=== PATIENT | female | born 1975 | race Caucasian/White ===

== ENCOUNTER 2017-01-08 11:47 | Emergency (ER) | payer BC ==
--- NOTE | ~2017-01-08 | ER ---
PATIENT'S NAME: RIZWAN HENRY [facility] AGE: 41 Y [address] ROOM: [place] [address] LOCATION: ED ADMIT DATE: 01/08/2017 ER/Outpatient Report DISCHARGE DATE: 01/08/2017 FAMILY PHYSICIAN: Lenin Harris MD ATTENDING PHYSICIAN: Josemanuel Vilchis Time of Arrival: 1151 hours. Time of Exam: 12 noon. CHIEF COMPLAINT: Abdominal pain. HISTORY OF PRESENT ILLNESS: The patient states since last night she has had some generalized right mid upper quadrant abdominal pain. States she has been nauseated, but has not vomited. Has not had fever or chills. Denies any change in her urinary frequency. Has not had pain with urination. Reports she had a normal bowel movement this morning. Has not noticed any blood in the stool. She states this morning she began having mid back pain also, that radiated down her right leg. She is not sure if it is associated with her abdominal pain or not, but she is just not able to get very comfortable because of the pain going down that right leg. ALLERGIES: ARE ON HER CHART AND REVIEWED BY ME. CURRENT MEDICATIONS: None. PAST MEDICAL HISTORY: She does have atrophic left kidney, GERD, degenerative disk disease, and anxiety. PAST SURGERIES: Include anterior cervical disk fusion, C3-C4; cholecystectomy; and bladder surgery in 2004. SOCIAL HISTORY: She lives at home with her . Does smoke a pack per day. Denies use of drugs or alcohol. Her primary provider is Dr. Harris. She did go to his office 1st today and he sent her here for further workup. PHYSICAL EXAMINATION: PATIENT'S NAME: RIZWAN HENRY [facility] AGE: 41 Y [address] ROOM: [place] [address] LOCATION: ED ADMIT DATE: 01/08/2017 ER/Outpatient Report DISCHARGE DATE: 01/08/2017 FAMILY PHYSICIAN: Lenin Harris MD ATTENDING PHYSICIAN: Josemanuel Vilchis VITAL SIGNS: Weight is 121 kg. Blood pressure is 123/93, pulse of 114, respirations 24, temperature of 97.2 tympanic, and O2 saturation is 96% on room air. GENERAL: She is awake, alert, and oriented x4. SKIN: [place], warm, and dry. LUNGS: Respirations are even and nonlabored. Lung sounds are clear throughout, decreased in the bases. HEART: Regular rate and rhythm. ABDOMEN: Soft, nondistended. Bowel sounds are present. She is very tender at the umbilical area and right above to the right of it. No right flank pain, but tenderness along the mid thoracic spinal area. EXTREMITIES: She moves all extremities strongly and equally. She frequently is stretching out her right leg to try and decrease the pain. No peripheral edema is noted. She has strong peripheral pulses. EMERGENCY ROOM COURSE: Saline lock was initiated. Fluids of normal saline were started at a wide- open rate. She was given Zofran 4 mg IV, fentanyl 50 mcg IV, and Valium 1 mg IV. LABORATORY DATA: Lab work was drawn. CBC shows a white count of 14.4, hemoglobin was 15.9 with hematocrit of 46.4. Chem panel is within normal limits. Her GFR is 54, BUN 13 with creatinine 1.1. Amylase is 47, lipase is 96. Clean-catch UA was obtained, it is negative. Urine is negative. CT scan with contrast was completed. Radiologist reports that she does have a small amount of free fluid in the pelvis, possibly from a ruptured cyst. He does not see any mass of the adnexa, no diverticulitis or colitis, no changes in the appendix, and no free air. She does have atrophic left kidney, but it is stable. She does have some degenerative changes of L5-S1. Fentanyl was repeated as was the Valium. The patient was able to lay on the cart and get some relief. The patient was reviewed with Dr. Vilchis. IMPRESSION: 1. Free fluid of the pelvis, possible ruptured cyst. 2. Back pain that extends into the right leg. PLAN: The patient is to be allowed to go home. Rest. Ice or heat to the back area. She is to follow up with either Dr. Harris or an [employer] provider in the next 1-2 days. Prescription was written for [place] for the pain. She verbalized understanding. PATIENT'S NAME: RIZWAN HENRY [facility] AGE: 41 Y [address] ROOM: [place] [address] LOCATION: ED ADMIT DATE: 01/08/2017 ER/Outpatient Report DISCHARGE DATE: 01/08/2017 FAMILY PHYSICIAN: Lenin Harris MD ATTENDING PHYSICIAN: Josemanuel Vilchis MARILEE AVERY APRN FOR DO SANDRA HAND/modl /[id number] d: 01/08/17 1940 t: 01/15/17 0641, OUTPATIENT REPORT
[~2017-01-08 11:47] MED LIST: BACTRIM DS1 TAB PO; DELTASONE10 MG PO; FLEXERIL10 MG PO; LEVAQUIN500 MG PO; PERCOCET 5-3251 EACH PO; TYLENOL325 MG PO
[2017-01-08 12:34] LABS: BILIRUBIN URINE NEGATIVE (NEGATIVE); BLOOD URINE NEGATIVE /UL (NEGATIVE); COLOR URINE YELLOW (YELLOW); GLUCOSE URINE NEGATIVE (NEGATIVE); KETONE URINE NEGATIVE (NEGATIVE); LEUKOCYTES URINE NEGATIVE /UL (NEGATIVE); NITRITE URINE NEGATIVE (NEGATIVE); PROTEIN URINE NEGATIVE (NEGATIVE); TURBIDITY URINE CLEAR (CLEAR); UROBILINOGEN URINE NORMAL (NORMAL)
[2017-01-08 12:35] LABS: BASOPHIL # 0.1 K/uL (0.0-0.2); BASOPHIL % 0.7 %; EOSINOPHIL # 0.2 K/uL (0.0-0.5); EOSINOPHIL % 1.3 %; HEMATOCRIT 46.4 % (33.0-46.0); HEMOGLOBIN 15.9 g/dL (10.0-15.0); IMMATURE GRANULOCYTE # 0.1 K/uL (0.0-0.3); IMMATURE GRANULOCYTE % 0.4 %; LYMPHOCYTE # 3.1 K/uL (0.8-4.0); LYMPHOCYTE % 21.4 %; MCH 29.2 pg (27.0-34.0); MCHC 34.3 gm/dL (32.0-36.5); MCV 85.3 fl (83.0-98.0); MONOCYTE # 0.6 K/uL (0.0-1.0); MONOCYTE % 4.2 %; MPV 10.5 fl (9.4-12.4); NEUTROPHIL # (ANC) 10.4 K/uL (1.8-7.8); NRBC % 0 /100WBC (0-0.00); PLATELET COUNT 317 K/uL (150-450); RBC 5.44 M/uL (3.50-5.50); RDW-CV 12.5 % (11.9-14.6); WBC 14.4 K/uL (4.0-11.0)
[2017-01-08 12:59] LABS: ALBUMIN 3.8 gm/dL (3.5-5.0); CALCIUM 8.9 mg/dL (8.5-10.5); CREATININE 1.1 mg/dL (0.5-1.1); TOTAL BILIRUBIN 0.4 mg/dL (0.0-1.5); TOTAL PROTEIN 7.4 g/dL (6.0-8.4)
[2017-01-08 13:02] LABS: ANION GAP 15.9 (10.0-19.0); POTASSIUM 3.9 mMol/L (3.7-5.1)
[2017-02-24] MEDS ORDERED: PROTONIX40 MG PO (10:11)
[2017-02-24] MEDS ORDERED: BUSPAR5 MG PO (10:11)
[2017-02-24] MEDS ORDERED: DRISDOL 5050000 UNIT PO (10:12)
== END 2017-01-08 14:20 | disposition disaster alternative care site (69) ==
LOC: GMED 11:47
PROVIDERS: Emergency Medicine
DX: N94.89 Other specified conditions associated with female genital organs and menstrual cycle (principal); M54.6 Pain in thoracic spine; F41.9 Anxiety disorder, unspecified; K21.9 Gastro-esophageal reflux disease without esophagitis; F17.210 Nicotine dependence, cigarettes, uncomplicated; Z88.5 Allergy status to narcotic agent; Z88.6 Allergy status to analgesic agent; Z98.1 Arthrodesis status; Z90.49 Acquired absence of other specified parts of digestive tract; Z98.890 Other specified postprocedural states
CPT/HCPCS: J2405; J3010; J3360; J7030; Q9967

== ENCOUNTER 2017-01-28 14:13 | Emergency (ER) | payer BC ==
--- NOTE | ~2017-01-28 | ER ---
PATIENT'S NAME: RIZWAN HENRY [facility] AGE: 41 Y [address] ROOM: [place] [address] LOCATION: [facility] ADMIT DATE: 01/28/2017 ER/Outpatient Report DISCHARGE DATE: 01/28/2017 FAMILY PHYSICIAN: Lenin Harris MD ATTENDING PHYSICIAN: Josemanuel Vilchis Time of Arrival: 1413 hours. Time of Evaluation: 1415 hours. CHIEF COMPLAINT: A burning sensation in mouth. HISTORY OF PRESENT ILLNESS: The patient is a 41-year-old female who presents to the emergency department today with a chief complaint of burning sensation in her mouth. She reports she was having spasms in her throat. This all occurred prior to arrival after eating some noodles. She feels like she is having some shortness of breath and a dry nonproductive cough. Denies any chest pain. No nausea or vomiting. No abdominal pain. No fevers or chills. No diarrhea. The patient has been on Macrobid secondary to urinary tract infection; however, the urine culture is reported as no growth. Denies any pain. PAST MEDICAL HISTORY: Degenerative disk disease, ectopic left kidney, and gastroesophageal reflux disease. PAST SURGICAL HISTORY: Anterior cervical disk fusion of C3-C4, gallbladder, and bladder surgery. SOCIAL HISTORY: The patient smokes a pack per day. Denies any alcohol or illicit drug use. ALLERGIES: TO AUGMENTIN, KEFLEX, LEVAQUIN, AND CIPROFLOXACIN. PRIMARY CARE DOCTOR: Lenin Harris MD. REVIEW OF SYSTEMS: All systems are reviewed by myself and are negative with the exception of those discussed in HPI and past medical history. PHYSICAL EXAMINATION: VITAL SIGNS: Weight 122 kg, blood pressure 137/82, pulse 120, respiratory rate 24, temperature 97.4, and oxygen saturation 97% on room air. PATIENT'S NAME: RIZWAN HENRY [facility] AGE: 41 Y [address] ROOM: [place] [address] LOCATION: [facility] ADMIT DATE: 01/28/2017 ER/Outpatient Report DISCHARGE DATE: 01/28/2017 FAMILY PHYSICIAN: Lenin Harris MD ATTENDING PHYSICIAN: Josemanuel Vilchis GENERAL: The patient is a 41-year-old female, obese, who appears in no acute respiratory distress. HEENT: Normocephalic, atraumatic. Pupils are equal, round, and reactive to light and accommodation. Extraocular motions are intact. Nares are patent bilaterally. TMs are clear. Oropharynx is clear. NECK: Supple. There is no nuchal rigidity. CARDIOVASCULAR: Tachycardic. No murmurs, rubs, or gallops. LUNGS: Clear to auscultation bilaterally. No wheezes, rales, or rhonchi. ABDOMEN: Soft, nontender, and nondistended. No rebound, rigidity, or guarding. MUSCULOSKELETAL: The patient moves all 4 extremities. SKIN: Warm and dry. There are no rashes or lesions noted. LABS AND X-RAYS: Lactate is 1.9. Procalcitonin is less than 0.05. CBC: White blood cell count 12.7, hemoglobin 15.6, hematocrit 46.3. Coags are normal. CMP is unremarkable. LFTs normal. Cardiac enzymes are normal. IMPRESSION: 1. Allergic reaction and anaphylaxis. 2. Initial visit. EMERGENCY DEPARTMENT COURSE: The patient was brought back to the examination room. Seen and evaluated by myself. An IV is established. Laboratory analysis and imaging are obtained as described above. The patient is given 0.3 mg of epinephrine IM. She is given 50 mg of Benadryl IV as well as 125 mg of Solu-Medrol IV, 40 mg of Pepcid IV, she is given a liter of normal saline. She is given 3 albuterol breathing treatments. The patient's symptoms did significantly improve. I have discussed results of the laboratory analysis with the patient and her . She is feeling back to her normal self at this time. I have written prescription for EpiPen for home. I have written a prescription for prednisone for home as well. I have discussed she is not to take the Macrobid and that she is not to eat Ramen Noodles again. I have asked she follows up with her primary care doctor in 2 days for re-evaluation. The patient is agreeable. I have discussed return to care instructions including worsening symptoms or any other concerns, to return to the emergency department as soon as possible. The patient is agreeable without further questions. DISPOSITION: The patient discharged home in good condition. PATIENT'S NAME: RIZWAN HENRY [facility] AGE: 41 Y [address] ROOM: [place] [address] LOCATION: [facility] ADMIT DATE: 01/28/2017 ER/Outpatient Report DISCHARGE DATE: 01/28/2017 FAMILY PHYSICIAN: Lenin Harris MD ATTENDING PHYSICIAN: Josemanuel Vilchis DO KJR/daniel /[id number] d: 01/29/17 0024 t: 02/06/17 1936, OUTPATIENT REPORT
[2017-01-28 14:41] LABS: BASOPHIL # 0.1 K/uL (0.0-0.2); BASOPHIL % 0.5 %; EOSINOPHIL # 0.2 K/uL (0.0-0.5); EOSINOPHIL % 1.3 %; HEMATOCRIT 46.3 % (33.0-46.0); HEMOGLOBIN 15.6 g/dL (10.0-15.0); IMMATURE GRANULOCYTE # 0.1 K/uL (0.0-0.3); IMMATURE GRANULOCYTE % 0.5 %; LYMPHOCYTE # 2.6 K/uL (0.8-4.0); LYMPHOCYTE % 20.7 %; MCH 29.1 pg (27.0-34.0); MCHC 33.7 gm/dL (32.0-36.5); MCV 86.4 fl (83.0-98.0); MONOCYTE # 0.5 K/uL (0.0-1.0); MPV 10.8 fl (9.4-12.4); NEUTROPHIL # (ANC) 9.3 K/uL (1.8-7.8); NRBC % 0 /100WBC (0-0.00); PLATELET COUNT 310 K/uL (150-450); RBC 5.36 M/uL (3.50-5.50); RDW-CV 12.7 % (11.9-14.6); WBC 12.7 K/uL (4.0-11.0)
[2017-01-28 14:50] LABS: PTT 26 SECONDS (25-32)
[2017-01-28 15:01] LABS: ALBUMIN 3.8 gm/dL (3.5-5.0); ALK PHOS 114 IU/L (33-138); ALT 23 IU/L (12-78); ANION GAP 14.7 (10.0-19.0); AST 18 IU/L (10-40); BLOOD UREA NITROGEN 14 mg/dL (6-24); CALCIUM 8.3 mg/dL (8.5-10.5); CHLORIDE 107 mMol/L (96-110); CO2 22 mMol/L (22-32); CPK 84 IU/L (21-215); CREATININE 1.1 mg/dL (0.5-1.1); ESTIMATED GFR (MDRD EQUATION) 54; POTASSIUM 3.7 mMol/L (3.7-5.1); SODIUM 140 mMol/L (135-145); TOTAL BILIRUBIN 0.4 mg/dL (0.0-1.5); TOTAL PROTEIN 7.4 g/dL (6.0-8.4)
[2017-02-24] MEDS ORDERED: BUSPAR5 MG PO (10:11)
[2017-02-24] MEDS ORDERED: PROTONIX40 MG PO (10:11)
[2017-02-24] MEDS ORDERED: DRISDOL 5050000 UNIT PO (10:12)
== END 2017-01-28 16:46 | disposition disaster alternative care site (69) ==
LOC: GMED 14:13
PROVIDERS: Emergency Medicine
DX: T78.2XXA Anaphylactic shock, unspecified, initial encounter (principal); F17.210 Nicotine dependence, cigarettes, uncomplicated; Z98.1 Arthrodesis status; Z88.1 Allergy status to other antibiotic agents
CPT/HCPCS: J0171; J1200; J2930; J7030

== ENCOUNTER → 2017-02-06 | Outpatient (CLI) | payer BC ==
[~2017-02-06] MED LIST changes: +BUSPAR5 MG PO; +DRISDOL 5050000 UNIT PO; +PROTONIX40 MG PO
== END | disposition disaster alternative care site (69) ==
LOC: GBCOE 12:42
DX: Z12.31 Encounter for screening mammogram for malignant neoplasm of breast (principal); E04.2 Nontoxic multinodular goiter
CPT/HCPCS: G0202

== ENCOUNTER 2017-02-12 18:07 | Emergency (ER) | payer BC ==
--- NOTE | ~2017-02-12 | ER ---
PATIENT'S NAME: RIZWAN HENRY [facility] AGE: 41 Y [address] ROOM: [place] [address] LOCATION: [facility] ADMIT DATE: 02/12/2017 ER/Outpatient Report DISCHARGE DATE: 02/12/2017 FAMILY PHYSICIAN: Valerie Cook MD ATTENDING PHYSICIAN: Ravin Wright Admission date and time are documented on the medical record. I saw the patient at 1830 hours. CHIEF COMPLAINT: Right upper quadrant abdominal pain. HISTORY OF PRESENT ILLNESS: This patient is a 41-year-old female who has chronic right upper quadrant abdominal pain. It intensifies from [id number] as it did today after she awoke from sleep this morning. She has had 3 diarrheal stools. She has nausea, but no vomiting. No fever, chills, sweats, coughs, or colds. No lightheadedness, dizziness, syncope, or near syncope. No fall or trauma. No headache, eyes, ears, nose, throat, neck, or spine pain. No chest pain or shortness of breath. No joint or muscle swelling, redness, or pain. No skin eruptions or rash. No history of neuro changes, psych issues, or endocrine problems. HOME MEDICATIONS: See attached medication list. ALLERGIES: PENICILLIN, KEFLEX, LEVAQUIN, AND CIPRO. SOCIAL HISTORY: The patient smokes a pack of cigarettes per day. Occasional intake of alcohol. SIGNIFICANT PAST MEDICAL HISTORY: Ectopic left kidney, gastroesophageal reflux, tobacco abuse, and degenerative disk disease. OPERATIONS: Cervical disk fusion, cholecystectomy, and bladder surgery. REVIEW OF SYSTEMS: All systems reviewed by me are negative with the exception of those discussed in the history of present illness. PHYSICAL EXAMINATION: PATIENT'S NAME: RIZWAN HENRY [facility] AGE: 41 Y [address] ROOM: [place] [address] LOCATION: [facility] ADMIT DATE: 02/12/2017 ER/Outpatient Report DISCHARGE DATE: 02/12/2017 FAMILY PHYSICIAN: Valerie Cook MD ATTENDING PHYSICIAN: Ravin Wright VITAL SIGNS: Temperature 98.4, pulse 111, respirations 18, blood pressure 129/88, and O2 sat on room air is 95%. HEAD: Normocephalic. EYES, EARS, NOSE, THROAT: Clear. NECK: Negative. SPINE: Negative. LUNGS: Clear. HEART: Regular. ABDOMEN: Mildly obese, soft, some tenderness in right upper quadrant. No palpable masses. No organomegaly. Good bowel tones. No CVA tenderness. EXTREMITIES: Intact. NEUROVASCULAR: Intact. SKIN: Clear. No skin eruptions or rash. LABORATORY DATA: Three-way abdominal x-rays show no perforation, obstruction, or acute lung infiltrate. We will review x-ray with the radiologist. Laboratory: Procalcitonin was less than 0.05. Lactate was 1.3. White count was 13,500, 72 segs, 21 lymphs, 5 monos, 1 eo, hemoglobin is 15 with hematocrit 44.2, and platelet count is 269,000. Sed rate is 18, PTT was 25, pro-time is 9.3 with an INR 0.89. Amylase and lipase were normal. CPK was 85. Urbtn-qx-ttlm cardiac enzymes were normal. Acetaminophen and salicylate serum levels were normal. CRP was 1.42. CMS was normal except for an elevated creatinine 1.5, low GFR 38. Medical blood alcohol was normal. CT scan of the abdomen and pelvis was negative as read by Radiology, see dictated transcribed report. IMPRESSION: 1. Right upper quadrant abdominal pain, etiology uncertain. 2. Renal insufficiency. 3. Gastroesophageal reflux with a history of gastritis. 4. Tobacco abuse. PLAN: The patient was given morphine IV in the emergency room for pain and Zofran IV for nausea and vomiting. Dismissed home. Fluids, diet as tolerated. Continue present home medications and care. [place] 7.5/325 as need for pain, #6. Follow up with personal physician in 1 to 2 days. Discussion ensued with the patient concerning my findings and recommendations, she understands. RAVIN WRIGHT MD SDS/modl PATIENT'S NAME: RIZWAN HENRY [facility] AGE: 41 Y [address] ROOM: [place] [address] LOCATION: ED ADMIT DATE: 02/12/2017 ER/Outpatient Report DISCHARGE DATE: 02/12/2017 FAMILY PHYSICIAN: Valerie Cook MD ATTENDING PHYSICIAN: Ravin Wright /[id number] d: 02/13/17 0146 t: 02/13/17 1809, OUTPATIENT REPORT
[~2017-02-12 18:07] MED LIST changes: -BUSPAR5 MG PO; -DRISDOL 5050000 UNIT PO; -PROTONIX40 MG PO
[2017-02-12 18:53] LABS: BILIRUBIN URINE NEGATIVE (NEGATIVE); BLOOD URINE 250 /UL (NEGATIVE); COLOR URINE YELLOW (YELLOW); GLUCOSE URINE NEGATIVE (NEGATIVE); KETONE URINE NEGATIVE (NEGATIVE); LEUKOCYTES URINE 100 /UL (NEGATIVE); NITRITE URINE NEGATIVE (NEGATIVE); PROTEIN URINE 15 mg/dL (NEGATIVE); SPEC GRAVITY URINE 1.015 (1.003-1.035); TURBIDITY URINE 1+ (CLEAR); UROBILINOGEN URINE NORMAL (NORMAL)
[2017-02-12 19:05] LABS: RBC URINE 20-50 #/HPF (NEGATIVE)
[2017-02-12 19:06] LABS: BACTERIA URINE MODERATE (NEGATIVE)
[2017-02-12 19:12] LABS: BASOPHIL # 0.1 K/uL (0.0-0.2); BASOPHIL % 0.4 %; EOSINOPHIL # 0.2 K/uL (0.0-0.5); EOSINOPHIL % 1.3 %; HEMATOCRIT 44.2 % (33.0-46.0); IMMATURE GRANULOCYTE # 0.1 K/uL (0.0-0.3); IMMATURE GRANULOCYTE % 0.4 %; LYMPHOCYTE # 2.8 K/uL (0.8-4.0); LYMPHOCYTE % 20.8 %; MCH 29.2 pg (27.0-34.0); MCHC 33.9 gm/dL (32.0-36.5); MCV 86.2 fl (83.0-98.0); MONOCYTE # 0.7 K/uL (0.0-1.0); MPV 11.1 fl (9.4-12.4); NEUTROPHIL # (ANC) 9.8 K/uL (1.8-7.8); NEUTROPHIL % 72.1 %; NRBC % 0 /100WBC (0-0.00); PLATELET COUNT 269 K/uL (150-450); RBC 5.13 M/uL (3.50-5.50); RDW-CV 12.6 % (11.9-14.6); WBC 13.5 K/uL (4.0-11.0)
[2017-02-12 19:21] LABS: INR - (THERAPEUTIC) 0.89 (0.92-1.07); PROTIME 9.3 SECONDS (9.8-11.4); PTT 25 SECONDS (25-32)
[2017-02-12 19:30] LABS: ALBUMIN 3.7 gm/dL (3.5-5.0); ALK PHOS 105 IU/L (33-138); ALT 30 IU/L (12-78); ANION GAP 11.9 (10.0-19.0); AST 20 IU/L (10-40); BLOOD UREA NITROGEN 17 mg/dL (6-24); CHLORIDE 110 mMol/L (96-110); CO2 22 mMol/L (22-32); CPK 85 IU/L (21-215); CREATININE 1.5 mg/dL (0.5-1.1); POTASSIUM 3.9 mMol/L (3.7-5.1); SODIUM 140 mMol/L (135-145); TOTAL PROTEIN 7.1 g/dL (6.0-8.4)
[2017-02-12 19:34] LABS: ESTIMATED GFR (MDRD EQUATION) 38; TOTAL BILIRUBIN 0.3 mg/dL (0.0-1.5)
[2017-02-24] MEDS ORDERED: BUSPAR5 MG PO (10:11)
[2017-02-24] MEDS ORDERED: PROTONIX40 MG PO (10:11)
[2017-02-24] MEDS ORDERED: DRISDOL 5050000 UNIT PO (10:12)
== END 2017-02-12 21:21 | disposition disaster alternative care site (69) ==
LOC: GMED 18:07
PROVIDERS: Emergency Medicine
DX: R10.11 Right upper quadrant pain (principal); N28.9 Disorder of kidney and ureter, unspecified; K21.9 Gastro-esophageal reflux disease without esophagitis; F17.210 Nicotine dependence, cigarettes, uncomplicated; Z88.0 Allergy status to penicillin; Z88.1 Allergy status to other antibiotic agents; Z98.1 Arthrodesis status; Z90.49 Acquired absence of other specified parts of digestive tract; Z98.890 Other specified postprocedural states
CPT/HCPCS: G0480; J2270; J2405; J7030

== ENCOUNTER → 2017-02-26 | Outpatient (CLI) | payer BC ==
[~2017-02-26] MED LIST changes: +BUSPAR5 MG PO; +DRISDOL 5050000 UNIT PO; +PROTONIX40 MG PO
== END | disposition disaster alternative care site (69) ==
LOC: GPOC 02-24 10:00
PROC: 0GBG3ZX Excision of Left Thyroid Gland Lobe, Percutaneous Approach, Diagnostic (ICD-10-PCS; principal; 2017-02-26)
PROC: 0GBH3ZX Excision of Right Thyroid Gland Lobe, Percutaneous Approach, Diagnostic (ICD-10-PCS; 2017-02-26)
DX: E04.2 Nontoxic multinodular goiter (principal)

== ENCOUNTER 2017-03-03 10:38 | Emergency (ER) | payer BC ==
--- NOTE | ~2017-03-03 | ER ---
PATIENT'S NAME: RIZWAN HENRY [facility] AGE: 41 Y [address] ROOM: [place] [address] LOCATION: ED ADMIT DATE: 03/03/2017 ER/Outpatient Report DISCHARGE DATE: 03/03/2017 FAMILY PHYSICIAN: Valerie Cook MD ATTENDING PHYSICIAN: Smuan Solitario Time of Arrival: Time of Evaluation: Admission date and time documented in the medical record. I saw the patient at 1050 hours. CHIEF COMPLAINT: Left anterior chest pain. HISTORY OF PRESENT ILLNESS: This patient is a 41-year-old female, who had onset of pain beneath her left breast last night. The pain has moved to the entire left anterior chest radiating to her left shoulder and left neck. She thinks she has a pinched nerve in her chest and in her neck that is causing this pain, however, personal physician wanted her to come to the emergency room to make sure she was not having a heart attack. No shortness of breath, diaphoresis, lightheadedness, dizziness, syncope, or near syncope. Some nausea when the pain hits, but no vomiting, diarrhea, urinary frequency, urgency, or dysuria. No recent colds, coughs, flus, fever, chills, or sweats. No fall or trauma. No headache, eyes, ears, nose, or throat pain. No joint or muscle swelling, redness, or pain. No skin eruptions or rash. No history of neurological changes, psychiatric issues, or endocrine problems. HOME MEDICATIONS: See attached medication list. ALLERGIES: PENICILLIN, KEFLEX, LEVAQUIN, AND CIPRO. SOCIAL HISTORY: The patient smokes a pack of cigarettes per day. Occasional intake of alcohol. SIGNIFICANT PAST MEDICAL HISTORY: 1. Tobacco abuse. 2. Ectopic left kidney. 3. Gastroesophageal reflux. 4. Degenerative disk disease. 5. Cervical spine. 6. Renal insufficiency. PATIENT'S NAME: RIZWAN HENRY [facility] AGE: 41 Y [address] ROOM: [place] [address] LOCATION: [facility] ADMIT DATE: 03/03/2017 ER/Outpatient Report DISCHARGE DATE: 03/03/2017 FAMILY PHYSICIAN: Valerie Cook MD ATTENDING PHYSICIAN: Suman Solitario PAST SURGICAL HISTORY: Operations: 1. Cervical spine fusion. 2. Cholecystectomy. 3. Bladder surgery. REVIEW OF SYSTEMS: All systems reviewed by me are negative with the exception of those discussed in the History of Present Illness. PHYSICAL EXAMINATION: VITAL SIGNS: Temperature 98.6, pulse 94, respiratory rate 16, blood pressure 132/71, and O2 saturation on room air is 97%. So Coma Scale was 15. HEENT: Head; normocephalic. No abrasion, contusion, laceration, swelling of the scalp or face. Eyes; extraocular muscles intact. PERRL. Ears; clear TMs bilaterally. Nose and Throat; clear. Mucous membranes moist. Teeth, jaw intact. NECK: Tenderness over the left lateral neck musculature. Range of motion full. No nuchal rigidity. No thyromegaly or cervical adenopathy. SPINE: Negative. LUNGS: Clear. Good air flow. No rales, rhonchi, or wheezes. HEART: Regular. Pulses are palpable. 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 ABDOMEN: Soft, nondistended, nontender. Good bowel tones. No organomegaly or abnormal mass palpable. EXTREMITIES: No peripheral edema, cyanosis, or deformity. NEUROLOGIC: Neurovascularly intact. SKIN: Clear. No skin eruptions or rash. DIAGNOSTIC DATA: EKG showed sinus rhythm. No acute ST-T elevation, ischemic change, or arrhythmia. Chest x-ray showed no acute infiltrate or changes. We will review x-ray with the radiologist. CMS was normal except for a low CO2 content of 21, elevated glucose 159, elevated creatinine 1.3, low GFR of 45, magnesium was 2.1, and CPK was 84. Point of care cardiac enzymes were normal. White count was 9100, 66 segs, 27 lymphs, 5 monos, 2 eos, and 1 baso. Hemoglobin is 15.1 with a hematocrit of 44.9, and platelet count was 241,000. PTT was 26, prothrombin time is 9.8 with an INR of 0.93. IMPRESSION: 1. Left anterior chest pain. Etiology uncertain. Most likely, chest wall etiology. She also has some left lateral neck muscular pain. 2. Renal insufficiency. 3. Tobacco abuse. PATIENT'S NAME: RIZWAN HENRY [facility] AGE: 41 Y [address] ROOM: [place] [address] LOCATION: [facility] ADMIT DATE: 03/03/2017 ER/Outpatient Report DISCHARGE DATE: 03/03/2017 FAMILY PHYSICIAN: Valerie Cook MD ATTENDING PHYSICIAN: Suman Solitario 4. Degenerative disk disease, involving the cervical spine. PLAN: The patient dismissed home. Observation. Activity as tolerated. Continue present home medications and care. Heating pad to sore areas intermittently as needed. Ice if needed. Follow up with personal physician as needed. Discussion ensued with the patient concerning my findings and recommendations, she understands. MD GEE CALDERON/modl /[id number] d: 03/03/178 t: 03/04/17 0611, OUTPATIENT REPORT
[2017-03-03 11:23] LABS: BASOPHIL # 0.1 K/uL (0.0-0.2); BASOPHIL % 0.5 %; EOSINOPHIL # 0.2 K/uL (0.0-0.5); EOSINOPHIL % 2.2 %; HEMATOCRIT 44.9 % (33.0-46.0); HEMOGLOBIN 15.1 g/dL (10.0-15.0); IMMATURE GRANULOCYTE % 0.3 %; LYMPHOCYTE # 2.4 K/uL (0.8-4.0); LYMPHOCYTE % 26.6 %; MCH 29.3 pg (27.0-34.0); MCHC 33.6 gm/dL (32.0-36.5); MCV 87.2 fl (83.0-98.0); MONOCYTE # 0.5 K/uL (0.0-1.0); MONOCYTE % 4.9 %; MPV 11.1 fl (9.4-12.4); NEUTROPHIL % 65.5 %; NRBC % 0 /100WBC (0-0.00); PLATELET COUNT 241 K/uL (150-450); RBC 5.15 M/uL (3.50-5.50); RDW-CV 12.7 % (11.9-14.6); WBC 9.1 K/uL (4.0-11.0)
[2017-03-03 11:32] LABS: INR - (THERAPEUTIC) 0.93 (0.92-1.07); PROTIME 9.8 SECONDS (9.8-11.4); PTT 26 SECONDS (25-32)
[2017-03-03 11:39] LABS: ALBUMIN 3.6 gm/dL (3.5-5.0); ALK PHOS 93 IU/L (33-138); ALT 24 IU/L (12-78); ANION GAP 12.8 (10.0-19.0); AST 20 IU/L (10-40); BLOOD UREA NITROGEN 17 mg/dL (6-24); CALCIUM 8.6 mg/dL (8.5-10.5); CHLORIDE 110 mMol/L (96-110); CO2 21 mMol/L (22-32); CPK 84 IU/L (21-215); CREATININE 1.3 mg/dL (0.5-1.1); ESTIMATED GFR (MDRD EQUATION) 45; MAGNESIUM 2.1 mg/dL (1.8-2.6); POTASSIUM 3.8 mMol/L (3.7-5.1); SODIUM 140 mMol/L (135-145); TOTAL PROTEIN 7.1 g/dL (6.0-8.4)
[2017-03-03 11:52] LABS: TOTAL BILIRUBIN 0.5 mg/dL (0.0-1.5)
== END 2017-03-03 12:27 | disposition disaster alternative care site (69) ==
LOC: GMED 10:38
PROVIDERS: Emergency Medicine
DX: R07.89 Other chest pain (principal); N28.9 Disorder of kidney and ureter, unspecified; M50.30 Other cervical disc degeneration, unspecified cervical region; F17.210 Nicotine dependence, cigarettes, uncomplicated; Z88.0 Allergy status to penicillin; Z88.1 Allergy status to other antibiotic agents; Z98.1 Arthrodesis status; Z90.49 Acquired absence of other specified parts of digestive tract

== ENCOUNTER → 2017-03-14 | Day surgery (SDC) | payer BC ==
[~2017-03-14] VITALS: Ht 167.6 cm; Wt 119.6 kg
== END | disposition disaster alternative care site (69) ==
LOC: GPOC 03-12 09:00 → GEND 07:25 → GPOC 09:00
PROC: 0DBE8ZZ Excision of Large Intestine, Via Natural or Artificial Opening Endoscopic (ICD-10-PCS; principal; 2017-03-14)
PROC: 0DB68ZX Excision of Stomach, Via Natural or Artificial Opening Endoscopic, Diagnostic (ICD-10-PCS; 2017-03-14)
DX: D12.6 Benign neoplasm of colon, unspecified (principal); K20.9 Esophagitis, unspecified; K25.9 Gastric ulcer, unspecified as acute or chronic, without hemorrhage or perforation; K57.30 Diverticulosis of large intestine without perforation or abscess without bleeding; K21.9 Gastro-esophageal reflux disease without esophagitis; N28.9 Disorder of kidney and ureter, unspecified; M50.30 Other cervical disc degeneration, unspecified cervical region; F17.210 Nicotine dependence, cigarettes, uncomplicated; Z88.0 Allergy status to penicillin; Z88.1 Allergy status to other antibiotic agents; Z90.49 Acquired absence of other specified parts of digestive tract; Z98.1 Arthrodesis status; Z98.890 Other specified postprocedural states
CPT/HCPCS: J7030

== ENCOUNTER 2017-04-14 22:22 | Emergency (ER) | payer BC ==
--- NOTE | ~2017-04-14 | ER ---
PATIENT'S NAME: RIZWAN HENRY [facility] AGE: 41 Y [address] ROOM: [place] [address] LOCATION: [facility] ADMIT DATE: 04/14/2017 ER/Outpatient Report DISCHARGE DATE: 04/15/2017 FAMILY PHYSICIAN: Valerie Cook MD ATTENDING PHYSICIAN: Davion Kingston ADDENDUM: CT non-contrast of abdomen and pelvis with no unusual abnormalities. ASSESSMENT: 1. Chronic abdominal pain. 2. Chronic anxiety and depression. 3. History of gastroesophageal reflux disease. 4. History of atrophic left kidney. PLAN: The patient was given a script for Zofran 4 mg p.o. every six hours and [place] 5/325 one or two every six hours for pain. Clear liquids tonight. Follow up with Dr. Cook tomorrow. The patient verbalized understanding of our findings and plan. Questions were answered. MARIN PEDERSON FOR DAVION KINGSTON MD SWJ/modl /[id number] d: 04/15/171 t: 04/29/17 182, OUTPATIENT REPORT
--- NOTE | ~2017-04-14 | ER ---
PATIENT'S NAME: RIZWAN HENRY [facility] AGE: 41 Y [address] ROOM: [place] [address] LOCATION: [facility] ADMIT DATE: 04/14/2017 ER/Outpatient Report DISCHARGE DATE: 04/15/2017 FAMILY PHYSICIAN: Valerie Cook MD ATTENDING PHYSICIAN: Davion Kingston CHIEF COMPLAINT: Severe mid abdominal pain, nausea, and vomiting. HISTORY OF PRESENT ILLNESS: The patient is a 41-year-old female, who says since she has had nausea, vomiting, and abdominal pain. The patient also states that she was seen within the last week by a it infrastructure specialist at [facility]. She was tested for acid reflux and was told that her valve in her lower esophagus was not working properly and also possibly the sphincter of Oddi may not be functioning properly. ALLERGIES: AUGMENTIN, CIPRO, KEFLEX, LEVAQUIN, MACROBID. CURRENT MEDICATIONS: 1. BuSpar. 2. Tramadol. 3. Pantoprazole 40 mg daily. MEDICAL HISTORY: Degenerative disk disease, GERD, depression, chronic abdominal pain. She has atrophic left kidney. SURGERIES: Include cholecystectomy, cervical disk fusion. SOCIAL HISTORY: A smoker, pack a day. Denies any alcohol. She is . REVIEW OF SYSTEMS: GENERAL: Denies fever or chills. HEENT: No recent headache or sore throat. RESPIRATORY: Denies shortness of breath or cough. CARDIOVASCULAR: No chest pain. No heart palpitations. GASTROINTESTINAL: Includes a kind of mid epigastric pain. Denies any radiation to the back. She has had nausea and vomiting with the pain. No diarrhea. No constipation. GENITOURINARY: No dysuria. No flank pain. PATIENT'S NAME: RIZWAN HENRY [facility] AGE: 41 Y [address] ROOM: [place] [address] LOCATION: [facility] ADMIT DATE: 04/14/2017 ER/Outpatient Report DISCHARGE DATE: 04/15/2017 FAMILY PHYSICIAN: Valerie Cook MD ATTENDING PHYSICIAN: Davion Kingston PHYSICAL EXAMINATION: VITAL SIGNS: Blood pressure was 150/83, her temperature was 98, her respiratory rate 20, pulse 106, O2 saturations 95%. GENERAL APPEARANCE: Alert, but anxious, somewhat obese. HEAD: Normocephalic. EYES: PERRL. No icterus was noted. NOSE: Septum midline. MOUTH: Oral membranes moist. Teeth appeared in adequate repair. LUNGS: Clear bilaterally. HEART: Rhythm appeared regular. Tones distant. ABDOMEN: Very tender kind of midepigastric. No rebound. Bowel sounds present. EXTREMITIES: No clubbing or cyanosis. LABORATORY DATA AND X-RAYS: CBC: White count was 12.4, hemoglobin 14.4, ANC was 8.8. test was negative. CMS: Potassium low at 3.6, glucose 111, creatinine is slightly elevated at 1.2. Lipase was 129. Urine showed yellow clear. Micro showed 0-2 white cells, rare red cell, few bacteria. PLAN: CT scan without contrast ordered. IV was started normal saline. The patient was given Zofran 4 mg IV, fentanyl 50 mcg IV, repeated x1. The patient will be turned over to Dr. Kingston at change of shift. MARIN PEDERSON FOR DAVION KINGSTON MD SWJ/modl /[id number] d: 04/15/17 0404 t: 04/29/17 1820, OUTPATIENT REPORT
--- NOTE | ~2017-04-14 | ER ---
PATIENT'S NAME: RIZWAN HENRY [facility] AGE: 41 Y [address] ROOM: [place] [address] LOCATION: ED ADMIT DATE: 04/14/2017 ER/Outpatient Report DISCHARGE DATE: 04/15/2017 FAMILY PHYSICIAN: Valerie Cook MD ATTENDING PHYSICIAN: Davion Kingston SUBJECTIVE: This is a 41-year-old female. She was initially seen by Oscar Chavez and checked out, pending the results of the CT scan. CT scan revealed no evidence of obstruction or acute surgical process. The patient had improved with medications in the Emergency Department. OBJECTIVE: GASTROINTESTINAL: On repeat exam, the abdomen is soft with minimal diffuse tenderness. ASSESSMENT: Abdominal pain of uncertain etiology. PLAN: Zofran as needed for nausea, clear liquids, and follow up with her regular doctor tomorrow. DAVION KINGSTON MD JDB/modl /[id number] d: 04/29/17 2254 t: 05/22/17 1753, OUTPATIENT REPORT
[2017-04-14 22:38] LABS: BILIRUBIN URINE NEGATIVE (NEGATIVE); BLOOD URINE 10 /UL (NEGATIVE); COLOR URINE YELLOW (YELLOW); GLUCOSE URINE NEGATIVE (NEGATIVE); KETONE URINE NEGATIVE (NEGATIVE); LEUKOCYTES URINE 25 /UL (NEGATIVE); NITRITE URINE NEGATIVE (NEGATIVE); PROTEIN URINE 15 mg/dL (NEGATIVE); TURBIDITY URINE CLEAR (CLEAR); UROBILINOGEN URINE NORMAL (NORMAL)
[2017-04-14 22:49] LABS: BACTERIA URINE FEW (NEGATIVE); RBC URINE RARE #/HPF (NEGATIVE); WBC URINE 0-2 #/HPF (NEGATIVE)
[2017-04-14 22:50] LABS: MUCUS URINE 1+ (NEGATIVE)
[2017-04-14 23:13] LABS: BASOPHIL # 0.1 K/uL (0.0-0.2); BASOPHIL % 0.5 %; EOSINOPHIL # 0.2 K/uL (0.0-0.5); EOSINOPHIL % 1.9 %; HEMATOCRIT 40.9 % (33.0-46.0); HEMOGLOBIN 14.4 g/dL (10.0-15.0); IMMATURE GRANULOCYTE # 0.1 K/uL (0.0-0.3); IMMATURE GRANULOCYTE % 0.6 %; LYMPHOCYTE # 2.6 K/uL (0.8-4.0); LYMPHOCYTE % 20.8 %; MCH 30.6 pg (27.0-34.0); MCHC 35.2 gm/dL (32.0-36.5); MCV 86.8 fl (83.0-98.0); MONOCYTE # 0.7 K/uL (0.0-1.0); MONOCYTE % 5.2 %; MPV 10.8 fl (9.4-12.4); NEUTROPHIL # (ANC) 8.8 K/uL (1.8-7.8); NRBC % 0 /100WBC (0-0.00); PLATELET COUNT 259 K/uL (150-450); RBC 4.71 M/uL (3.50-5.50); RDW-CV 12.7 % (11.9-14.6); WBC 12.4 K/uL (4.0-11.0)
[2017-04-14 23:31] LABS: ALBUMIN 3.3 gm/dL (3.5-5.0); ALK PHOS 103 IU/L (33-138); ALT 22 IU/L (12-78); ANION GAP 8.6 (10.0-19.0); AST 18 IU/L (10-40); BLOOD UREA NITROGEN 17 mg/dL (6-24); CALCIUM 8.7 mg/dL (8.5-10.5); CHLORIDE 109 mMol/L (96-110); CO2 25 mMol/L (22-32); CREATININE 1.2 mg/dL (0.5-1.1); ESTIMATED GFR (MDRD EQUATION) 49; POTASSIUM 3.6 mMol/L (3.7-5.1); SODIUM 139 mMol/L (135-145); TOTAL BILIRUBIN 0.2 mg/dL (0.0-1.5); TOTAL PROTEIN 6.7 g/dL (6.0-8.4)
== END 2017-04-15 00:49 | disposition disaster alternative care site (69) ==
LOC: GMED 22:22
PROVIDERS: Emergency Medicine
DX: R10.9 Unspecified abdominal pain (principal); G89.29 Other chronic pain; F41.9 Anxiety disorder, unspecified; F32.9 Major depressive disorder, single episode, unspecified; K21.9 Gastro-esophageal reflux disease without esophagitis; N26.1 Atrophy of kidney (terminal); F17.210 Nicotine dependence, cigarettes, uncomplicated; Z90.49 Acquired absence of other specified parts of digestive tract; Z98.890 Other specified postprocedural states; Z88.1 Allergy status to other antibiotic agents; Z79.899 Other long term (current) drug therapy; Z79.891 Long term (current) use of opiate analgesic
CPT/HCPCS: J2405; J3010; J7030

== ENCOUNTER → 2017-06-04 | Outpatient (CLI) | payer BC | END | disposition disaster alternative care site (69) | LOC: GRAD 05-28 08:00 | DX: M54.6 Pain in thoracic spine (principal) ==

== ENCOUNTER → 2017-06-19 | Outpatient (CLI) | payer BC | END | disposition disaster alternative care site (69) | LOC: GRAD 15:00 | DX: M54.2 Cervicalgia (principal); M43.22 Fusion of spine, cervical region; M50.221 Other cervical disc displacement at C4-C5 level; M50.223 Other cervical disc displacement at C6-C7 level ==